=== PATIENT | male | born 1990 | race Two or more races ===

== ENCOUNTER 2021-02-23 18:46 | Emergency (ER) | payer MEDICAID, OTHER ==
[~2021-02-23] VITALS: Ht 170.2 cm; Wt 72.6 kg
[2021-02-23] MEDS ORDERED: IV NS 0.9% 1,000 ML BAG IV ONE (19:00)
[2021-02-23 19:20] LABS: BASOPHILS % (AUTO) 0.6 % (0.0-2.0); EOSINOPHILS % (AUTO) 0.2 % (0.0-6.0); HEMATOCRIT 43 % (39-51); HEMOGLOBIN 14.5 g/dL (13.5-17.5); LYMPHOCYTES # (AUTO) 0.6 /CMM (0.8-4.8); LYMPHOCYTES % (AUTO) 7.6 % (20.0-44.0); MEAN CORPUSCULAR HGB CONC 34 g/dl (31.0-36.0); MEAN CORPUSCULAR VOLUME 98 fL (80-96); MONOCYTES # (AUTO) 0.6 /CMM (0.1-1.30); MONOCYTES % (AUTO) 7.2 % (2.0-12.0); NEUTROPHILS # (AUTO) 6.8 /CMM (1.8-8.9); NEUTROPHILS % (AUTO) 84.4 % (43.0-81.0); PLATELET COUNT (AUTO) 276 /CMM (150-450); RED BLOOD CELL COUNT(AUTO) 4.39 MIL/uL (4.5-6.0); WHITE BLOOD COUNT (AUTO) 8.1 K/uL (4.3-11.0)
--- NOTE | 2021-02-23 19:20 | NUR ---
ARMIDA FROM HOME TO ER BED 6. AAOX4. NOT IN RESP DISTRESS. TRANSFERRED FROM [facility] TO BED W/ MIN ASSIST. BROUGHT IN FOR SEIZURE VS SYNCOPAL EPISODE. PER PT, HE WAS FIXING A DOOR WHEN HE WAS WITNESSED TO HAVE SLUMMPED DOWN AND REPORTED TO HAVE JERKING MOVEMENT. PT DOES NOT REMEMBER PASSING OUT AND NEXT THIGN HE REMEMEBRS WAS PARAMEDICS ARE ALREADY THERE. NO NOTED ORAL TRUAMA. PT DENIED ANY HX OF SEIZURE. MD WAS AT THE BEDSIDE FOR EVAL. ORDERS RECEIVED, NOTED AND CARRIED OUT. IV LINE ESTABLISHED ON L AC 20G, BLOOD DRAWN AND GIVEN TO PHLENB AT BEDSIDE. SEIZURE PRECAUTION WAS INPLACE W/ PADDED SIDERAIL.
[2021-02-23 19:50] LABS: ALBUMIN 4.2 g/dL (3.4-5.0); BILIRUBIN,DIRECT 0.7 mg/dL (0.0-0.2); BILIRUBIN,TOTAL 1.9 mg/dL (0.2-1.0); CALCIUM, SERUM 9.6 mg/dL (8.5-10.1); CREATININE 1.1 mg/dL (0.6-1.3); POTASSIUM 3.7 mmol/L (3.5-5.1); TOTAL PROTEIN, SERUM 8.5 g/dL (6.4-8.2)
[2021-02-23] MEDS ORDERED: LORAZEPAM INJ 2 MG/ML VIAL IV ONE (20:30)
[2021-02-23] MEDS ORDERED: LORAZEPAM INJ 2 MG/ML VIAL ONE (20:32)
[2021-02-23] MEDS ORDERED: CHLO25CA22 PO (20:42)
--- NOTE | 2021-02-23 21:13 | NUR ---
Patient discharged to home in stable condition. Written and verbal after care instructions given. Patient verbalizes understanding of instruction.IV removed. Catheter intact and site benign. Pressure and 4x4 applied to site. No bleeding noted. Pt ambulatory with a steady gait
[2021-02-23 21:14] VITALS: BP 97/156
== END 2021-02-23 21:15 | disposition home or self-care (01) ==
LOC: ER 18:52
DX: F10.239 Alcohol dependence with withdrawal, unspecified (principal); R56.9 Unspecified convulsions; Z91.013 Allergy to seafood; Y90.6 Blood alcohol level of 120-199 mg/100 ml
CPT/HCPCS: 36415; 70450; 80048; 80076; 85025; 93005; 96361; 96374; 99285; J2060; J7030